=== PATIENT | male | born 1950 | race Caucasian/White ===

== ENCOUNTER 2022-06-09 09:00 | Outpatient (RCR) | payer OTHER, MEDICARE, SELFPAY | END 2022-06-30 09:34 | disposition home or self-care (01) | LOC: HO.PTCHIC 09:00 | PROVIDERS: PCP Physician Assistant Medical; Visit Provider Physician Assistant Surgical | DX: S76.912D Strain of unspecified muscles, fascia and tendons at thigh level, left thigh, subsequent encounter (principal) | CPT/HCPCS: 97110; 97116; 97161; 97530 ==